=== PATIENT | male | born 1970 | race Caucasian/White ===

== ENCOUNTER 2016-12-26 18:34 | Inpatient (IN) | payer MEDICARE ==
[~2016-12-26] VITALS: Ht 177.8 cm; Wt 94.0 kg
[2016-12-26] VITALS (7 sets, daily range): BP systolic 109–124; BP diastolic 66–83; PULSE 60–95; RESP 18–24; TEMP 97.4–98.2; O2SAT 94–98
--- NOTE | 2016-12-26 18:48 | PD ---
HPI Chief Complaint: Chest Pain Time Seen by Provider: 18:38 Travel History International Travel<30 days: No Contact w/Intl Traveler<30days: No History of Present Illness HPI 46-year-old male patient from [place] with history of previous MIs, pacemaker defibrillator placement, last RI was a year ago, hypertension, presents to the ER because of substernal chest pains which she states feels like his previous heart attacks starting about half an hour ago. He was given aspirin and nitroglycerin, and his pain is now a 1 out of 10. He denies any nausea, radiation of pain, shortness of breath, or any other symptoms. Modifying Factors: None Associated Signs & Symptoms: Chest pain Risk Factors: Previous extensive cardiac history, RI PFSH Past Medical History Hx Anticoagulant Therapy: Yes (ASPIRIN) Cardiovascular Problems: Yes (RI X 2) Social History Tobacco Use: No Allergies-Medications (Allergen,Severity, Reaction): Coded Allergies: ergotamine (Verified Allergy, Severe, 12/26/16) ketorolac (Verified Allergy, Intermediate, 12/26/16) PANIC ATTACKS Reported Meds & Prescriptions Reported Meds & Active Scripts Active Reported Wellbutrin Xl 24 HR (Bupropion HCl) 300 Mg Tab 300 Mg PO DAILY Xanax (Alprazolam) 1 Mg Tab 1 Mg PO Q6H PRN Aspirin 325 Mg Tab 325 Mg PO DAILY Carisoprodol 350 Mg Tablet PO Q8HR Carisoprodol 350 Mg Tablet Oxycodone (Oxycodone HCl) 10 Mg Tab 10 Mg PO Q8H PRN Pravastatin 20 Mg Tab 20 Mg PO DAILY Carvedilol 25 Mg Tab 25 Mg PO BID Review of Systems Except as stated in HPI: all other systems reviewed are Neg Physical Exam Narrative GENERAL: Well-developed middle age white male patient currently in mild distress. Awake and oriented 3. SKIN: Focused skin assessment warm/dry. HEAD: Atraumatic. Normocephalic. EYES: Pupils equal and round. No scleral icterus. No injection or drainage. ENT: No nasal bleeding or discharge. Mucous membranes pink and moist. NECK: Trachea midline. No JVD. CARDIOVASCULAR: Regular rate and rhythm. No murmur appreciated. RESPIRATORY: No accessory muscle use. Clear to auscultation. Breath sounds equal bilaterally. GASTROINTESTINAL: Abdomen soft, non-tender, nondistended. Hepatic and splenic margins not palpable. MUSCULOSKELETAL: No obvious deformities. No clubbing. No cyanosis. No edema. NEUROLOGICAL: Awake and alert. No obvious cranial nerve deficits. Motor grossly within normal limits. Normal speech. PSYCHIATRIC: Appropriate mood and affect; insight and judgment normal. Data Data Last Documented VS Vital Signs Date Time Temp Pulse Resp B/P (MAP) Pulse Ox O2 Delivery O2 Flow Rate FiO2 12/26/16 18:45 115/82 (93) 115/81 (92) 12/26/16 18:43 98 Room Air 12/26/16 18:36 98.2 95 24 Orders Orders Electrocardiogram (12/26/16 18:39) Ckmb (Isoenzyme) Profile (12/26/16 18:39) Complete Blood Count With Diff (12/26/16 18:39) Comprehensive Metabolic Panel (12/26/16 18:39) Magnesium (Mg) (12/26/16 18:39) Prothrombin Time / Inr (Pt) (12/26/16 18:39) Act Partial Throm Time (Ptt) (12/26/16 18:39) Troponin I (12/26/16 18:39) Chest, Single Ap (12/26/16 18:39) Ecg Monitoring (12/26/16 18:39) Bilateral Bp Monitoring (12/26/16 18:39) Iv Access Insert/Monitor (12/26/16 18:39) Oximetry (12/26/16 18:39) Oxygen Administration (12/26/16 18:39) Heparin Inj (Heparin Inj) (12/26/16 19:00) Heparin Inj (Heparin Inj) (12/27/16 01:00) Heparin Inj (Heparin Inj) (12/27/16 01:00) Heparin-D5w 25,000 U/250 Ml (Heparin-D5w (12/26/16 19:00) Act Partial Throm Time (Ptt) (12/26/16 19:00) Cbc No Diff, Includes Plts (12/26/16 19:00) Cbc No Diff, Includes Plts (12/29/16 06:00) Act Partial Throm Time (Ptt) (12/27/16 02:00) Occult Blood (Hemoccult) Stool (12/26/16 19:00) CKMB (12/26/16 18:40) CKMB% (12/26/16 18:40) Labs Laboratory Tests Test 12/26/16 18:40 White Blood Count 6.7 TH/MM3 Red Blood Count 4.46 MIL/MM3 Hemoglobin 13.7 GM/DL Hematocrit 39.8 % Mean Corpuscular Volume 89.2 FL Mean Corpuscular Hemoglobin 30.6 PG Mean Corpuscular Hemoglobin Concent 34.3 % Red Cell Distribution Width 12.6 % Platelet Count 137 TH/MM3 Mean Platelet Volume 10.7 FL Neutrophils (%) (Auto) 47.8 % Lymphocytes (%) (Auto) 42.9 % Monocytes (%) (Auto) 6.4 % Eosinophils (%) (Auto) 2.1 % Basophils (%) (Auto) 0.8 % Neutrophils # (Auto) 3.2 TH/MM3 Lymphocytes # (Auto) 2.9 TH/MM3 Monocytes # (Auto) 0.4 TH/MM3 Eosinophils # (Auto) 0.1 TH/MM3 Basophils # (Auto) 0.1 TH/MM3 CBC Comment AUTO DIFF Prothrombin Time 11.5 SEC Prothromb Time International Ratio 1.0 RATIO Activated Partial Thromboplast Time 25.1 SEC Blood Urea Nitrogen 17 MG/DL Creatinine 1.27 MG/DL Random Glucose 97 MG/DL Total Protein 7.2 GM/DL Albumin 4.0 GM/DL Calcium Level 8.6 MG/DL Magnesium Level 1.9 MG/DL Alkaline Phosphatase 100 U/L Aspartate Amino Transf (AST/SGOT) 24 U/L Alanine Aminotransferase (ALT/SGPT) 34 U/L Total Bilirubin 0.6 MG/DL Sodium Level 138 MEQ/L Potassium Level 3.9 MEQ/L Chloride Level 105 MEQ/L Carbon Dioxide Level 26.9 MEQ/L Anion Gap 6 MEQ/L Estimat Glomerular Filtration Rate 61 ML/MIN Total Creatine Kinase 114 U/L Troponin I LESS THAN 0.02 NG/ML MDM Medical Decision Making Medical Screen Exam Complete: Yes Emergency Medical Condition: Yes Medical Record Reviewed: Yes Interpretation(s) EKG shows normal sinus rhythm with occasional PVCs, ventricular rate currently 78 bpm. He has subcentimeter ST elevations in inferior leads with no obvious reciprocal ST depressions. There are no EKG on file to compare. Last 24 hours Impressions Chest X-Ray 12/26/16 [id number] Signed Impressions: Service Date/Time: Monday, December 26, 2016 19:36 - CONCLUSION: 1. No acute findings. Pacer leads in right atrium and right ventricle. No effusion. Cameron Torres MD Laboratory Tests Test 12/26/16 18:40 Red Blood Count 4.46 MIL/MM3 (4.50-5.90) Platelet Count 137 TH/MM3 (150-450) Estimat Glomerular Filtration Rate 61 ML/MIN (>89) Troponin I LESS THAN 0.02 NG/ML Differential Diagnosis ACS versus STEMI versus non-STEMI versus unstable angina versus anxiety attack versus pneumonia versus dysrhythmias Narrative Course Chest pain is currently a 1 out of 10 according to the patient, much improved after aspirin and nitroglycerin. Case was discussed with Dr. Torres who agrees that this is not an ST elevation RI, EKG was faxed to him. He wanted me to start the patient on heparin and admitted to medicine. Procedures EKG Prior to Arrival: Yes Physician Communication Physician Communication Case is signed out to Dr. Harvey at 7 PM pending full lab workup. Planning for admission. Diagnosis Primary Impression: Chest pain Additional Impression: Unstable angina Admitting Information Admitting Physician Requests: Admit Monroe Rousseau MD Dec 26, 2016 18:48
[2016-12-26] MEDS ORDERED: HEPARIN-D5W 25,000 U/250 ML 250 ML IV PRN (19:00)
[2016-12-26] MEDS ORDERED: HEPARIN SODIUM - IV 10,000 UNITS/10 ML VIAL IV PUSH ONE (19:00)
[2016-12-26] MEDS ORDERED: ASPI325T PO (19:05)
[2016-12-26] MEDS ORDERED: CARI350T25 PO (19:05)
[2016-12-26] MEDS ORDERED: PRAV20TA2 PO (19:05)
[2016-12-26] MEDS ORDERED: XANA1TAB2 PO (19:05)
[2016-12-26] MEDS ORDERED: WELLTAB39 PO (19:05)
[2016-12-26] MEDS ORDERED: OXYC-395 PO (19:05)
[2016-12-26] MEDS ORDERED: CARI350T25 (19:05)
[2016-12-26] MEDS ORDERED: CARV25TA PO (19:05)
[2016-12-26 19:07] LABS: AUTOMATED NEUTROPHIL # 3.2 TH/MM3 (1.8-7.7); BASOPHIL # 0.1 TH/MM3 (0-0.2); BASOPHIL % 0.8 % (0.0-2.0); EOSINOPHIL # 0.1 TH/MM3 (0-0.4); EOSINOPHIL % 2.1 % (0.0-4.0); HEMATOCRIT 39.8 % (39.0-51.0); LYMPH % 42.9 % (9.0-44.0); LYMPHOCYTE # 2.9 TH/MM3 (1.0-4.8); MEAN CELL VOLUME 89.2 FL (80.0-100.0); MEAN CORPUSCULAR HEMOGLOBIN 30.6 PG (27.0-34.0); MEAN CORPUSCULAR HGB CONC 34.3 % (32.0-36.0); MONO % 6.4 % (0.0-8.0); NEUT % 47.8 % (16.0-70.0); PLATELET COUNT 137 TH/MM3 (150-450); RED BLOOD COUNT 4.46 MIL/MM3 (4.50-5.90); RED CELL DISTRIBUTION WIDTH 12.6 % (11.6-17.2); WHITE BLOOD COUNT 6.7 TH/MM3 (4.0-11.0)
[2016-12-26 19:08] LABS: APTT (PATIENT) 25.1 SEC (24.3-30.1); PROTHROMBIN TIME - PATIENT 11.5 SEC (9.8-11.6)
--- NOTE | 2016-12-26 19:09 | RADRPT ---
EXAM DATE/TIME: 12/26/2016 19:36 [facility] COMPARISON: No previous studies available for comparison. INDICATIONS : Chest Pain MEDICAL HISTORY : Cardiovascular disease. SURGICAL HISTORY : Pacemaker. ENCOUNTER: Initial ACUITY: 1 day PAIN SCORE: 7/10 LOCATION: Bilateral chest FINDINGS: A single view of the chest demonstrates the lungs to be symmetrically aerated without evidence of mas s, infiltrate or effusion. The cardiomediastinal contours are unremarkable. Mild cardiomegaly. Pacer leads in right atrium and right ventricle. Osseous structures are intact. CONCLUSION: 1. No acute findings. Pacer leads in right atrium and right ventricle. No effusion. Cameron Torres MD on December 26, 2016 at 19:07 Board Certified Radiologist. This report was verified electronically.
[2016-12-26 19:12] LABS: HEMO FLAGS AUTO DIFF
[2016-12-26 19:14] LABS: ANION GAP 6 MEQ/L (5-15); AST (GOT) 24 U/L (15-37); BICARBONATE 26.9 MEQ/L (21.0-32.0); BLOOD UREA NITROGEN 17 MG/DL (7-18); CHLORIDE 105 MEQ/L (98-107); GLOMERULAR FILTRATION RATE 61 ML/MIN (>89); MAGNESIUM 1.9 MG/DL (1.5-2.5); POTASSIUM 3.9 MEQ/L (3.5-5.1); SODIUM (NA) 138 MEQ/L (136-145)
[2016-12-26 19:15] LABS: ALT (GPT) 34 U/L (12-78)
[2016-12-26 19:18] LABS: ALKALINE PHOSPHATASE 100 U/L (45-117); CREATINE KINASE 114 U/L (39-308); TOTAL BILIRUBIN ADULT 0.6 MG/DL (0.2-1.0)
[2016-12-26 19:31] LABS: CKMB 1.6 NG/ML (0.5-3.6)
--- NOTE | 2016-12-26 19:38 | PD ---
Physical Exam Date Seen by Provider: Dec 26, 2016 Time Seen by Provider: 19:36 Narrative Accepted in transfer of care from Dr Rousseau GENERAL: Well-developed well-nourished male in no acute respiratory distress SKIN: Warm and dry. HEAD: Normocephalic. EYES: No scleral icterus. No injection or drainage. NECK: Supple, trachea midline. No JVD or lymphadenopathy. CARDIOVASCULAR: Regular rate and rhythm without murmurs, gallops, or rubs. RESPIRATORY: Breath sounds equal bilaterally. No accessory muscle use. GASTROINTESTINAL: Abdomen soft, non-tender, nondistended. MUSCULOSKELETAL: No cyanosis, or edema. Radial and dorsalis pedis pulses 2++= to palpation bilaterally Data Data Last Documented VS Vital Signs Date Time Temp Pulse Resp B/P (MAP) Pulse Ox O2 Delivery O2 Flow Rate FiO2 12/26/16 19:29 79 21 124/66 (85) 97 Room Air 12/26/16 18:36 98.2 Orders Orders Electrocardiogram (12/26/16 18:39) Ckmb (Isoenzyme) Profile (12/26/16 18:39) Complete Blood Count With Diff (12/26/16 18:39) Comprehensive Metabolic Panel (12/26/16 18:39) Magnesium (Mg) (12/26/16 18:39) Prothrombin Time / Inr (Pt) (12/26/16 18:39) Act Partial Throm Time (Ptt) (12/26/16 18:39) Troponin I (12/26/16 18:39) Chest, Single Ap (12/26/16 18:39) Ecg Monitoring (12/26/16 18:39) Bilateral Bp Monitoring (12/26/16 18:39) Iv Access Insert/Monitor (12/26/16 18:39) Oximetry (12/26/16 18:39) Oxygen Administration (12/26/16 18:39) Heparin Inj (Heparin Inj) (12/26/16 19:00) Heparin Inj (Heparin Inj) (12/27/16 01:00) Heparin Inj (Heparin Inj) (12/27/16 01:00) Heparin-D5w 25,000 U/250 Ml (Heparin-D5w (12/26/16 19:00) Cbc No Diff, Includes Plts (12/29/16 06:00) Act Partial Throm Time (Ptt) (12/27/16 02:00) Occult Blood (Hemoccult) Stool (12/26/16 19:00) CKMB (12/26/16 18:40) CKMB% (12/26/16 18:40) Sodium Chlorid 0.9% 500 Ml Inj (Ns 500 M (12/26/16 19:45) Sodium Chlor 0.9% 1000 Ml Inj (Ns 1000 M (12/26/16 19:45) Nitroglycerin 2% Oint (Nitroglycerin 2% (12/26/16 20:00) Admit Order (Ed Use Only) (12/26/16 ) [employer] / Telemetry [id number] (12/26/16 20:17) Diet Heart Healthy (12/27/16 Breakfast) Activity Bed Rest (12/26/16 20:17) Notify Dr: Other (12/26/16 20:17) Consult Cardiology (12/26/16 ) Labs Laboratory Tests Test 12/26/16 18:40 White Blood Count 6.7 TH/MM3 Red Blood Count 4.46 MIL/MM3 Hemoglobin 13.7 GM/DL Hematocrit 39.8 % Mean Corpuscular Volume 89.2 FL Mean Corpuscular Hemoglobin 30.6 PG Mean Corpuscular Hemoglobin Concent 34.3 % Red Cell Distribution Width 12.6 % Platelet Count 137 TH/MM3 Mean Platelet Volume 10.7 FL Neutrophils (%) (Auto) 47.8 % Lymphocytes (%) (Auto) 42.9 % Monocytes (%) (Auto) 6.4 % Eosinophils (%) (Auto) 2.1 % Basophils (%) (Auto) 0.8 % Neutrophils # (Auto) 3.2 TH/MM3 Lymphocytes # (Auto) 2.9 TH/MM3 Monocytes # (Auto) 0.4 TH/MM3 Eosinophils # (Auto) 0.1 TH/MM3 Basophils # (Auto) 0.1 TH/MM3 CBC Comment AUTO DIFF Differential Comment AUTO DIFF CONFIRMED Prothrombin Time 11.5 SEC Prothromb Time International Ratio 1.0 RATIO Activated Partial Thromboplast Time 25.1 SEC Blood Urea Nitrogen 17 MG/DL Creatinine 1.27 MG/DL Random Glucose 97 MG/DL Total Protein 7.2 GM/DL Albumin 4.0 GM/DL Calcium Level 8.6 MG/DL Magnesium Level 1.9 MG/DL Alkaline Phosphatase 100 U/L Aspartate Amino Transf (AST/SGOT) 24 U/L Alanine Aminotransferase (ALT/SGPT) 34 U/L Total Bilirubin 0.6 MG/DL Sodium Level 138 MEQ/L Potassium Level 3.9 MEQ/L Chloride Level 105 MEQ/L Carbon Dioxide Level 26.9 MEQ/L Anion Gap 6 MEQ/L Estimat Glomerular Filtration Rate 61 ML/MIN Total Creatine Kinase 114 U/L Creatine Kinase MB 1.6 NG/ML Troponin I LESS THAN 0.02 NG/ML [facility] Medical Record Reviewed: Yes Supervised Visit with JEREL: No Interpretation(s) EKG normal sinus rhythm with PVCs inferior infarction age-indeterminate with QS in lead [address] elevation no reciprocal depression; (this EKG has been reviewed by on-call refractory manager Dr. Torres at 7:03 and it is not a STEMI per Dr Richardson) Last Impressions Chest X-Ray 12/26/16 [id number] Signed Impressions: Service Date/Time: Wednesday, December 26, 2016 19:36 - CONCLUSION: 1. No acute findings. Pacer leads in right atrium and right ventricle. No effusion. Cameron Torres MD CBC & BMP Diagram 12/26/16 18:40 Total Protein 7.2, Albumin 4.0, Calcium Level 8.6, Magnesium Level 1.9, Alkaline Phosphatase 100, Aspartate Amino Transf (AST/SGOT) 24, Alanine Aminotransferase (ALT/SGPT) 34, Total Bilirubin 0.6 Vital Signs Date Time Temp Pulse Resp B/P (MAP) Pulse Ox O2 Delivery O2 Flow Rate FiO2 12/26/16 19:29 79 21 124/66 (85) 97 Room Air 12/26/16 18:45 115/82 (93) 115/81 (92) 12/26/16 18:43 98 Room Air 12/26/16 18:43 98 Room Air 12/26/16 18:36 98.2 95 24 115/82 (93) Differential Diagnosis Accepted in transfer of care from Dr Rousseau; please refer to her dictation Narrative Course Accepted in transfer of care from Dr Rousseau; follow up trop and with Dr Torres --already aware of this patient; started on heparin s/p aspirin and nitroglycerin sublingual w/ reported pain/discomfort 1-2/10 Patient resting comfortably aware that his first set of cardiac enzymes are found to be in normal range patient still notes some mild soreness 1/10 in intensity Patient is receiving heparin infusion has address and paste to his chest wall has artery received aspirin will require admission to [facility] with consult to cardiology serial cardiac enzymes and EKGs. Physician Communication Physician Communication Discussed with [facility] Diagnosis Primary Impression: Chest pain Additional Impression: Unstable angina Admitting Information Admitting Physician Requests: Admit Marii Harvey MD Dec 26, 2016 19:38
[2016-12-26] MEDS ORDERED: SODIUM CHLORID 0.9% 500 ML INJ 500 ML IV ONE (19:45)
[2016-12-26 19:52] LABS: SCAN/DIFF AUTO DIFF CONFIRMED
[2016-12-26] MEDS ORDERED: NITROGLYCERIN 2% OINT 1 GM PACKET TOPICAL ONE (20:00)
[2016-12-26] MEDS: SODIUM CHLOR 0.9% 1000 ML INJ 1,000 ML IV SCH ×2 (20:28→20:35)
--- NOTE | 2016-12-26 20:37 | HHI.HP ---
HPI Service [facility] Primary Care Physician No Primary Care Physician Admission Diagnosis acs; h/o mi Diagnoses: (1) Unstable angina Diagnosis: Principal (2) Dehydration Diagnosis: Principal (3) Thrombocytopenia Diagnosis: Principal (4) Anxiety Diagnosis: Principal (5) Depression Diagnosis: Principal Travel History International Travel<30 Days: No Contact w/Intl Traveler <30 Da: No History of Present Illness This is a 46-year-old male with a PMH of CAD s/p [place], Pacemaker and Migraine who was brought to the ER secondary to c/o chest pain. States pain similar to his previous MIs. Visiting from [place], follows w/ Chemical Plant Technical Director back home, states had previous Cardiac Cath on multiple occasions, however unable to place stent due to "tight blood vessels". S/p ASA and NTG prior to arrival w/ improvement, pain currently 03/17. Denies fever, chills, SOB or sick contacts. On arrival, EKG w/ ST elevation inferior leads, Dr. Torres consulted by ER physician, no STEMI. Per pt, has abnormal EKG at baseline. Attempting to contact [employer] Plant Technical Director to obtain prior EKGs. Currently on Heparin gtt, Dr. Torres will eval in am. Review of Systems Except as stated in HPI: all other systems reviewed are Neg ROS: 14 point review of systems otherwise negative. Past Family Social History Past Medical History PMH: CAD s/p [place], Pacemaker and Migraine Past Surgical History PAST SURGICAL HISTORY: Pacemaker ([employer]) Allergies: Coded Allergies: ergotamine (Verified Allergy, Severe, 12/26/16) ketorolac (Verified Allergy, Intermediate, 12/26/16) PANIC ATTACKS Family History PAST FAMILY HISTORY: Reviewed, strong family h/o CAD at young age in Mother and Father. Social History PAST SOCIAL HISTORY: Negative for alcohol, tobacco or drugs. Physical Exam Vital Signs Vital Signs Date Time Temp Pulse Resp B/P (MAP) Pulse Ox O2 Delivery O2 Flow Rate FiO2 12/26/16 20:29 66 19 109/78 (88) 97 Room Air 12/26/16 19:29 79 21 124/66 (85) 97 Room Air 12/26/16 18:45 115/82 (93) 115/81 (92) 12/26/16 18:43 98 Room Air 12/26/16 18:43 98 Room Air 12/26/16 18:36 98.2 95 24 115/82 (93) Physical Exam PE: GENERAL: Very pleasant middle-aged white male in no acute distress. HEENT: PERRLA, EOMI. No scleral icterus or conjunctival pallor. No lid lag or facial droop. CARDIOVASCULAR: Regular rate and rhythm. No obvious murmurs to auscultation. No chest tenderness to palpation. RESPIRATORY: No obvious rhonchi or wheezing. Clear to auscultation. Breath sounds equal bilaterally. GASTROINTESTINAL: Abdomen soft, non-tender, nondistended. BS normal. MUSCULOSKELETAL: Extremities without clubbing, cyanosis, or edema. No obvious deformities. NEUROLOGICAL: Awake, alert and oriented x4. No focal neurologic deficits. Moving both upper and lower extremities spontaneously. Laboratory Laboratory Tests Test 12/26/16 18:40 White Blood Count 6.7 Red Blood Count 4.46 Hemoglobin 13.7 Hematocrit 39.8 Mean Corpuscular Volume 89.2 Mean Corpuscular Hemoglobin 30.6 Mean Corpuscular Hemoglobin Concent 34.3 Red Cell Distribution Width 12.6 Platelet Count 137 Mean Platelet Volume 10.7 Neutrophils (%) (Auto) 47.8 Lymphocytes (%) (Auto) 42.9 Monocytes (%) (Auto) 6.4 Eosinophils (%) (Auto) 2.1 Basophils (%) (Auto) 0.8 Neutrophils # (Auto) 3.2 Lymphocytes # (Auto) 2.9 Monocytes # (Auto) 0.4 Eosinophils # (Auto) 0.1 Basophils # (Auto) 0.1 CBC Comment AUTO DIFF Differential Comment AUTO DIFF CONFIRMED Prothrombin Time 11.5 Prothromb Time International Ratio 1.0 Activated Partial Thromboplast Time 25.1 Blood Urea Nitrogen 17 Creatinine 1.27 Random Glucose 97 Total Protein 7.2 Albumin 4.0 Calcium Level 8.6 Magnesium Level 1.9 Alkaline Phosphatase 100 Aspartate Amino Transf (AST/SGOT) 24 Alanine Aminotransferase (ALT/SGPT) 34 Total Bilirubin 0.6 Sodium Level 138 Potassium Level 3.9 Chloride Level 105 Carbon Dioxide Level 26.9 Anion Gap 6 Estimat Glomerular Filtration Rate 61 Total Creatine Kinase 114 Creatine Kinase MB 1.6 Troponin I LESS THAN 0.02 Result Diagram: 12/26/16183912/26/161839 Caprini VTE Risk Assessment Caprini VTE Risk Assessment: Mod/High Risk (score >= 2) Caprini Risk Assessment Model Point Value = 1 Point Value = 2 Point Value = 3 Point Value = 5 Age 41-60 Minor surgery BMI > 25 kg/m2 Swollen legs Varicose veins or History of unexplained or recurrent spontaneous Oral contraceptives or hormone replacement Sepsis (< 1 month) Serious lung disease, including pneumonia (< 1 month) Abnormal pulmonary function Acute myocardial infarction Congestive heart failure (< 1 month) History of inflammatory bowel disease Medical patient at bed rest Age 61-74 Arthroscopic surgery Major open surgery (> 45 min) Laparoscopic surgery (> 45 min) Malignancy Confined to bed (> 72 hours) Immobilizing plaster cast Central venous access Age >= 75 History of VTE Family history of VTE Factor V Leiden Prothrombin [id number] Lupus anticoagulant Anticardiolipin antibodies Elevated serum homocysteine Heparin-induced thrombocytopenia Other congenital or acquired thrombophilia Stroke (< 1 month) Elective arthroplasty Hip, pelvis, or leg fracture Acute spinal cord injury (< 1 month) Prophylaxis Regimen Total Risk Factor Score Risk Level Prophylaxis Regimen 0-1 Low Early ambulation 2 Moderate Order ONE of the following: *Sequential Compression Device (SCD) *Heparin 5000 units SQ BID 3-4 Higher Order ONE of the following medications: *Heparin 5000 units SQ TID *Enoxaparin/Lovenox 40 mg SQ daily (WT < 150 kg, CrCl > 30 mL/min) *Enoxaparin/Lovenox 30 mg SQ daily (WT < 150 kg, CrCl > 10-29 mL/min) *Enoxaparin/Lovenox 30 mg SQ BID (WT < 150 kg, CrCl > 30 mL/min) AND/OR *Sequential Compression Device (SCD) 5 or more Highest Order ONE of the following medications: *Heparin 5000 units SQ TID (Preferred with Epidurals) *Enoxaparin/Lovenox 40 mg SQ daily (WT < 150 kg, CrCl > 30 mL/min) *Enoxaparin/Lovenox 30 mg SQ daily (WT < 150 kg, CrCl > 10-29 mL/min) *Enoxaparin/Lovenox 30 mg SQ BID (WT < 150 kg, CrCl > 30 mL/min) AND *Sequential Compression Device (SCD) Assessment and Plan Problem List: (1) Unstable angina ICD Code: I20.0 - Unstable angina Status: Acute (2) Dehydration ICD Code: E86.0 - Dehydration (3) Thrombocytopenia ICD Code: D69.6 - Thrombocytopenia, unspecified (4) Anxiety ICD Code: F41.9 - Anxiety disorder, unspecified (5) Depression ICD Code: F32.9 - Major depressive disorder, single episode, unspecified Assessment and Plan A/P: 1. Unstable Angina: r/o ACS, h/o CAD s/p [place] and Pacemaker, now w/ acute onset of substernal chest pain relieved by NTG. EKG w/ ST elevation inferior leads, Dr. Torres consulted by ER physician, no STEMI. Per pt, EKG abnormal at baseline. Attempting to contact Chemical Plant Technical Director in [place]. Currently chest pain free. Continue NTG/Morphine prn. On Heparin gtt. 2. Dehydration: GFR 61, BUN/Creat normal. IVF for hydration, repeat labs in am. 3. Thrombocytopenia: Platelets 137, no active bleeding, no previous labs for comparison. Will monitor. 4. Anxiety: Resume home Xanax. 5. Depression: Stable. Resume home Wellbutrin. 6. DVT Prophylaxis: On Heparin gtt 7. Social work for d/c planning as needed. 8. Case discussed w/ ER physician at length. Physician Certification 2 Midnight Certification Type: Admission for Inpatient Services Order for Inpatient Services The services are ordered in accordance with Medicare regulations or non- Medicare payer requirements, as applicable. In the case of services not specified as inpatient-only, they are appropriately provided as inpatient services in accordance with the 2-midnight benchmark. Estimated LOS (days): 2 days is the estimated time the patient will need to remain in the hospital, assuming treatment plan goals are met and no additional complications. Post-Hospital Plan: Not yet determined Evette Burnett MD Dec 26, 2016 20:37
[2016-12-26] MEDS ORDERED: SODIUM CHLORIDE 0.9% FLUSH 10 ML FLUSH IV FLUSH PRN (20:45)
[2016-12-26] MEDS ORDERED: ACETAMINOPHEN 325 MG TAB PO PRN (20:45)
[2016-12-26] MEDS ORDERED: BISACODYL 10 MG SUPP RECTAL PRN (20:45)
[2016-12-26] MEDS ORDERED: LACTULOSE SYRUP 20 GM/30 ML CUP PO PRN (20:45)
[2016-12-26] MEDS ORDERED: MORPHINE SULFATE 2 MG/ML INJ IV PRN (20:45)
[2016-12-26] MEDS ORDERED: ALPRAZolam 1 MG TAB PO PRN (20:45)
[2016-12-26] MEDS ORDERED: SENNOSIDES 8.6 MG TAB PO PRN (20:45)
[2016-12-26] MEDS ORDERED: MAGNESIUM HYDROXIDE SUSP 30 ML CUP PO PRN (20:45)
[2016-12-26] MEDS ORDERED: ONDANSETRON HCL 4 MG/2 ML VIAL IVP PRN (20:45)
[2016-12-26] MEDS ORDERED: NITROGLYCERIN 2% OINT 1 GM PACKET TOPICAL PRN (20:45)
[2016-12-26] MEDS: DOCUSATE SODIUM 50 MG/SENNA 8.6 MG TAB PO SCH (21:00)
[2016-12-26] MEDS: SODIUM CHLORIDE 0.9% FLUSH 10 ML FLUSH IV FLUSH SCH (21:00)
[2016-12-26] MEDS: CARVEDILOL 12.5 MG TAB PO SCH (21:00)
[2016-12-26] MEDS ORDERED: MECL-62 PO (21:51)
[2016-12-26] MEDS ORDERED: CETI10 PO (21:51)
[2016-12-26] MEDS: CARISOPRODOL 350 MG TAB PO SCH (22:45)
[2016-12-26] MEDS: MECLIZINE HCL 25 MG TAB PO SCH (22:45)
[2016-12-27] MEDS ORDERED: HEPARIN SODIUM - IV 10,000 UNITS/10 ML VIAL IV PUSH PRN ×2 (01:00)
[2016-12-27 02:08] LABS: AUTOMATED NEUTROPHIL # 3.6 TH/MM3 (1.8-7.7); BASOPHIL % 0.6 % (0.0-2.0); EOSINOPHIL # 0.1 TH/MM3 (0-0.4); EOSINOPHIL % 1.1 % (0.0-4.0); HEMATOCRIT 36.9 % (39.0-51.0); HEMO FLAGS DIFF FINAL; LYMPH % 37.7 % (9.0-44.0); LYMPHOCYTE # 2.4 TH/MM3 (1.0-4.8); MEAN CELL VOLUME 88.6 FL (80.0-100.0); MEAN CORPUSCULAR HEMOGLOBIN 30.5 PG (27.0-34.0); MEAN CORPUSCULAR HGB CONC 34.4 % (32.0-36.0); MONO % 5.7 % (0.0-8.0); NEUT % 54.9 % (16.0-70.0); PLATELET COUNT 121 TH/MM3 (150-450); RED BLOOD COUNT 4.17 MIL/MM3 (4.50-5.90); RED CELL DISTRIBUTION WIDTH 12.6 % (11.6-17.2); WHITE BLOOD COUNT 6.5 TH/MM3 (4.0-11.0)
[2016-12-27 03:00] VITALS: BP 102/62; PULSE 60; PULSE 61; RESP 18; TEMP 98.1; O2SAT 95
[2016-12-27] MEDS: SODIUM CHLOR 0.9% 1000 ML INJ 1,000 ML IV SCH ×3 (05:45→16:35)
[2016-12-27] MEDS: CARISOPRODOL 350 MG TAB PO SCH ×2 (06:00→14:13)
[2016-12-27 07:00] VITALS: BP 105/73; PULSE 71; RESP 18; TEMP 97.7; O2SAT 98
[2016-12-27] MEDS: DOCUSATE SODIUM 50 MG/SENNA 8.6 MG TAB PO SCH (09:00)
[2016-12-27] MEDS: SODIUM CHLORIDE 0.9% FLUSH 10 ML FLUSH IV FLUSH SCH (09:00)
[2016-12-27] MEDS ORDERED: CETIRIZINE HCL 10 MG TAB PO SCH (09:00)
[2016-12-27] MEDS ORDERED: PRAVASTATIN SOD 20 MG TAB PO SCH (09:00)
[2016-12-27] MEDS ORDERED: buPROPion HCL 150 MG SUSTAINED RELEASE TAB PO SCH (09:00)
[2016-12-27] MEDS ORDERED: ASPIRIN 325 MG TAB PO SCH (09:00)
[2016-12-27] MEDS: CARVEDILOL 12.5 MG TAB PO SCH (09:00)
[2016-12-27] MEDS: MECLIZINE HCL 25 MG TAB PO SCH (09:00)
[2016-12-27 09:06] LABS: APTT (PATIENT) 40.2 SEC (24.3-30.1)
[2016-12-27 09:12] LABS: ANION GAP 6 MEQ/L (5-15); AST (GOT) 18 U/L (15-37); BICARBONATE 26.2 MEQ/L (21.0-32.0); BLOOD UREA NITROGEN 12 MG/DL (7-18); CHLORIDE 110 MEQ/L (98-107); GLOMERULAR FILTRATION RATE 75 ML/MIN (>89); POTASSIUM 3.8 MEQ/L (3.5-5.1); SODIUM (NA) 142 MEQ/L (136-145)
[2016-12-27 09:13] LABS: ALT (GPT) 28 U/L (12-78)
[2016-12-27 09:16] LABS: ALKALINE PHOSPHATASE 94 U/L (45-117); TOTAL BILIRUBIN ADULT 0.7 MG/DL (0.2-1.0)
[2016-12-27] MEDS ORDERED: INFLUENZA VIRUS VACCINE (QUADRIVALENT) 0.5 ML SYR IM ONE (10:00)
--- NOTE | 2016-12-27 10:08 | HHI.PR ---
Subjective Remarks f/u; instable angina. in no acute distress. no chest pain or sob. d/w the RN and no acute issues over night. Objective Vitals Vital Signs Date Time Temp Pulse Resp B/P (MAP) Pulse Ox O2 Delivery O2 Flow Rate FiO2 12/27/16 07:00 71 12/27/16 07:00 95 Room Air 12/27/16 07:00 97.7 71 18 105/73 (84) 98 12/27/16 03:00 98.1 61 18 102/62 (75) 95 12/27/16 03:00 60 12/27/16 03:00 95 Room Air 12/26/16 23:33 18 12/26/16 23:00 60 12/26/16 23:00 94 Room Air 12/26/16 23:00 97.4 66 18 114/71 (85) 94 12/26/16 22:52 18 12/26/16 21:14 12/26/16 21:00 72 12/26/16 21:00 98.2 66 18 117/83 (94) 96 12/26/16 21:00 96 Room Air 12/26/16 20:29 66 19 109/78 (88) 97 Room Air 12/26/16 19:29 79 21 124/66 (85) 97 Room Air 12/26/16 18:45 115/82 (93) 115/81 (92) 12/26/16 18:43 98 Room Air 12/26/16 18:43 98 Room Air 12/26/16 18:36 98.2 95 24 115/82 (93) I/O 12/26/16 12/26/16 12/26/16 12/27/16 12/27/16 12/27/16 07:00 15:00 23:00 07:00 15:00 23:00 Intake Total 500 ml 1332 ml Output Total 800 ml Balance 500 ml 532 ml Intake Oral 240 ml IV Total 500 ml 1092 ml Output Urine Total 800 ml # Bowel Movements 0 Result Diagram: 12/27/16 0123 12/27/16 0819 Imaging Last Impressions Chest X-Ray 12/26/16 1839 Signed Impressions: Service Date/Time: Monday, December 26, 2016 19:36 - CONCLUSION: 1. No acute findings. Pacer leads in right atrium and right ventricle. No effusion. Cameron Torres MD Objective Remarks GENERAL: This is a well-nourished, well-developed patient, in no apparent distress. CARDIOVASCULAR: Regular rate and regular rhythm without murmurs, gallops, or rubs. RESPIRATORY: Clear to auscultation. Breath sounds equal bilaterally. No wheezes , rales, or rhonchi. GASTROINTESTINAL: Abdomen soft, non-tender, nondistended. Normal, active bowel sounds MUSCULOSKELETAL: Extremities without clubbing, cyanosis, or edema. NEURO: Alert & Oriented x4 to person, place, time, situation. Moves all ext x4 Medications and IVs Current Medications Heparin Sodium (Porcine) (Heparin Inj) 7,000 units ONCE ONCE IV PUSH Last administered on 12/26/16 19:22; Start 12/26/16 at 19:00; Stop 12/26/16 at 19 :02; Status DC Heparin Sodium (Porcine) (Heparin Inj) 5,000 units UNSCH PRN IV PUSH APTT LESS THAN 25; Start 12/27/16 at 01:00 Heparin Sodium (Porcine) (Heparin Inj) 2,500 units UNSCH PRN IV PUSH APTT 25 TO 39; Start 12/27/16 at 01:00 Heparin Sodium/ Dextrose 250 ml @ 10 mls/hr TITRATE PRN IV Coagulation management Last administered on 12/26/16 19:29; Start 12/26/16 at 19:00 Sodium Chloride 500 ml @ 500 mls/hr BOLUS ONCE IV Last administered on 20:28; Start 12/26/16 at 19:45; Stop 12/26/16 at 20:44; Status DC Sodium Chloride 1,000 ml @ 100 mls/hr Q10H IV Last administered on 12/27/16 05:45; Start 12/26/16 at 19:45 Nitroglycerin (Nitroglycerin 2% Oint) 1 inch ONCE ONCE TOPICAL ; Start at 20:00; Stop 12/26/16 at 20:01; Status DC Sodium Chloride 1,000 ml @ 100 mls/hr Q10H IV ; Start 12/26/16 at 20:35 Sodium Chloride (NS Flush) 2 ml UNSCH PRN IV FLUSH FLUSH AFTER USING IV ACCESS ; Start 12/26/16 at 20:45 Sodium Chloride (NS Flush) 2 ml BID IV FLUSH Last administered on 12/27/16 09 :00; Start 12/26/16 at 21:00 Ondansetron HCl (Zofran Inj) 4 mg Q6H PRN IVP NAUSEA OR VOMITING; Start at 20:45 Acetaminophen (Tylenol) 650 mg Q6H PRN PO FEVER/PAIN SCALE 1 TO 2; Start 12/26 at 20:45 Morphine Sulfate (Morphine Inj) 2 mg Q3H PRN IV PAIN 6-10; Start 12/26/16 at 20:45 Oxycodone HCl (Roxicodone) 5 mg Q4H PRN PO PAIN SCALE 3 TO 5 Last administered on 12/27/16 09:44; Start 12/26/16 at 20:45 Senna/Docusate Sodium (Jerri-Colace) 1 tab BID PO Last administered on 09:00; Start 12/26/16 at 21:00 Magnesium Hydroxide (Milk Of Magnesia Liq) 30 ml Q12H PRN PO Mild constipation ; Start 12/26/16 at 20:45 Sennosides (Senokot) 17.2 mg Q12H PRN PO Moderate constipation; Start at 20:45 Bisacodyl (Dulcolax Supp) 10 mg DAILY PRN RECTAL SEVERE CONSITIPATION; Start 12/26/16 at 20:45 Lactulose (Lactulose Liq) 30 ml DAILY PRN PO SEVERE CONSITIPATION; Start 12/26 at 20:45 Nitroglycerin (Nitroglycerin 2% Oint) 0.5 inch Q6H PRN TOPICAL CHEST PAIN; Start 12/26/16 at 20:45 Alprazolam (Xanax) 1 mg Q6H PRN PO ANXIETY Last administered on 12/26/16 23: 17; Start 12/26/16 at 20:45 Aspirin (Aspirin) 325 mg DAILY PO Last administered on 12/27/16 09:00; Start 12/27/16 at 09:00 Bupropion HCl (Wellbutrin Sr) 300 mg DAILY PO ; Start 12/27/16 at 09:00 Carvedilol (Coreg) 25 mg BID PO Last administered on 12/26/16 21:00; Start 12/26/16 at 21:00 Pravastatin Sodium (Pravachol) 20 mg DAILY PO Last administered on 12/27/16 09:00; Start 12/27/16 at 09:00 Meclizine HCl (Antivert) 25 mg BID PO Last administered on 12/27/16 09:00; Start 12/26/16 at 22:45 Carisoprodol (Soma) 350 mg Q8HR PO Last administered on 12/27/16 06:00; Start 12/26/16 at 22:45 Cetirizine HCl (ZyrTEC) 10 mg DAILY PO Last administered on 12/27/16 09:00; Start 12/27/16 at 09:00 Influenza Virus Vaccine (Flu (Quadrivalent) Vaccine Inj) 0.5 ml ONCE ONCE IM ; Start 12/27/16 at 10:00; Stop 12/27/16 at 10:01; Status DC A/P Problem List: (1) Unstable angina ICD Code: I20.0 - Unstable angina Status: Acute (2) Dehydration ICD Code: E86.0 - Dehydration (3) Thrombocytopenia ICD Code: D69.6 - Thrombocytopenia, unspecified (4) Anxiety ICD Code: F41.9 - Anxiety disorder, unspecified (5) Depression ICD Code: F32.9 - Major depressive disorder, single episode, unspecified Assessment and Plan A/P 1. Unstable Angina: h/o CAD s/p [place] and Pacemaker, now w/ acute onset of substernal chest pain relieved by NTG. EKG w/ ST elevation inferior leads, Dr. Torres consulted by ER physician, no STEMI. Per pt, EKG abnormal at baseline. Currently chest pain free. Continue NTG/Morphine prn. On Heparin gtt. continue aspirin, coreg and statin. 2. Dehydration: IVF for hydration. 3. Thrombocytopenia: Platelets 137, no active bleeding, no previous labs for comparison. Will monitor. 4. Anxiety: Resumed home Xanax. 5. Depression: Stable. Resumed home Wellbutrin. 6. DVT Prophylaxis: On Heparin gtt Discharge Planning awaiting cardiology evaluation. Silvana Tamayo MD Dec 27, 2016 10:08
[2016-12-27] MEDS ORDERED: CARVEDILOL 6.25 MG TAB PO SCH (10:15)
[2016-12-27 11:00] VITALS: BP 118/80; PULSE 72; RESP 18; TEMP 98.4; O2SAT 97
--- NOTE | 2016-12-27 11:07 | MB ---
cc: CHARLES DALY MD DATE OF CONSULTATION: 12/27/2016 REASON FOR CONSULTATION: Chest pain. HISTORY OF PRESENT ILLNESS The patient is a very pleasant 46-year-old gentleman with a history of a prior inferior GA that apparently was not amendable to intervention. 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 The patient was visiting from [place] at the [facility] yesterday when he began having chest pain while he was walking around. He took two sublingual nitroglycerin with no effect. EMS was called, they gave him a third. He was chest pain free by the time he got to the emergency department where he was admitted and he has ruled out for GA. He is currently asymptomatic denying any residual chest pain, no shortness breath, lightheadedness, dizziness. Past medical history 1. Myocardial infarction with coronary disease not amendable to revascularization at the time. 2. [employer] pacemaker (the patient says defibrillator as well). 3. Anxiety. CURRENT MEDICATIONS 1. Coreg 6.25 mg q. 12. 2. Aspirin 325 mg daily. 3. Wellbutrin. 4. Pravachol. 5. Zyrtec ALLERGIES Ketorolac Ergotamine. PHYSICAL EXAMINATION Afebrile, pulse 71, respiratory 18, BP 105/73, sating 95% on room air. General: Pleasant well-appearing gentleman in no distress. Neck: No JVD. Lungs: Clear auscultation bilaterally. Cardiovascular: Regular rhythm. No murmurs appreciated. Abdomen: Benign. Extremities: No edema. LABORATORY DATA Cardiac enzymes negative x3, sodium 142, potassium 3.8, chloride 110, bicarb 26.2, BUN 12, creatinine 1.06, glucose 98, INR is 1.0, white count 6.5, hematocrit 36.9, platelets 121. EKG showed sinus rhythm with an old inferior infarct and nonspecific inferior ST changes likely not acute, as well as occasional PVCs. IMPRESSION Chest pain. The patient's chest pain seems fairly typical, however, he has had multiple cardiac catheterization showing coronary disease that was not amendable to intervention. Before sending him to another catheterization, I think a nuclear stress test would be reasonable to ensure there something beyond scar that could be fixed. Additionally, I will add isosorbide to his regimen for anti-anginal to help reduce his chest pain as well. He is already on a beta elli. Further recommendations based on his clinical course and stress test. Thank you again for the opportunity to participate in this patient's care. MD MYRA Felix/JUDE /10:44 AM /10:54 AM
[2016-12-27] MEDS ORDERED: REGADENOSON INJ 0.4 MG/5 ML SYR ONE (12:59)
--- NOTE | 2016-12-27 13:29 | EKG ---
Date Performed: 12/26/2016 Time Performed: 18:39:02 PTAGE: 46 years EKG: Sinus rhythm WITH FREQUENT VENTRICULAR PREMATURE COMPLEXES INFERIOR MYOCARDIAL INFARCTION ANTEROLATERAL MYOCARDIA L INFARCTION ACUTE UT NO PREVIOUS TRACING DOCTOR: Alan Ibanez Interpretating Date/Time 12/27/2016 13:28:45
--- NOTE | 2016-12-27 14:28 | RADRPT ---
EXAM DATE/TIME: 12/27/2016 11:56 [facility] COMPARISON: No previous studies available for comparison. INDICATIONS : Chest pain. Angina. Myocardial infarction. DOSE: mCi Tc99m Myoview at stress. ? mCi Tc99m Myoview at rest. 0.4 mg Lexiscan STRESS SYMPTOMS: Dyspnea and weird feeling. EJECTION FRACTION: 44% MEDICAL HISTORY : Hypertension. Myocardial infarction. Cardiovascular disease SURGICAL HISTORY : Tonsillectomy. Pacemaker. ENCOUNTER: Initial ACUITY: 1 day PAIN SCALE: 0/10 LOCATION: Bilateral chest TECHNIQUE: The patient underwent pharmacologic stress with infusion of prescribed dose. Continuous ECG tracing was monitored during stress. Gated SPECT imaging was performed after stress and conventional SPECT i maging was performed at rest. The examination was performed on a SPECT/CT scanner, both attenuation and non-corrected datasets were reviewed. FINDINGS: DISTRIBUTION: The maximum perfused segment at stress is in the lateral wall. PERFUSION STUDY: There is a large fixed defect involving the inferior wall. No reversible defects observed. GATED STUDY: There is a relative global hypokinesia. This is most pronounced involving the inferior wall with dysk inesia noted particularly at the base of the inferior wall. CONCLUSION: No reversible defects observed to suggest acute ischemia. RISK CATEGORY: Intermediate Saeid Valdez Jr., MD on December 27, 2016 at 14:20 Board Certified Radiologist. This report was verified electronically.
[2016-12-27 15:18] VITALS: BP 120/83; PULSE 60; PULSE 67; RESP 18; TEMP 97.8; O2SAT 97
[2016-12-27 15:34] VITALS: RESP 18
[2016-12-27] MEDS ORDERED: ISOS30TA3 PO (16:00)
[2016-12-27] MEDS ORDERED: CARV6.25 PO (16:00)
--- NOTE | 2016-12-27 16:06 | HHI.PR ---
Addendum To [facility] Progress Not Reason for addendum: Additonal documentation (d/w - patient was cleared for discharge with outpatient f/u- Imdur was added. d/w the RN.) Silvana Tamayo MD Dec 27, 2016 16:06
[2016-12-27 16:07] VITALS: PULSE 68
[2016-12-28] MEDS ORDERED: ISOSORBIDE MONONITRATE 30 MG TAB PO SCH (07:00)
== END 2016-12-27 16:55 | disposition home or self-care (01) | DRG 303 ==
LOC: NEPC 18:34 → NEDA 20:20 → HCVI 21:05 → HCIN 12-27 13:57
PROVIDERS: ADMIT Internal Medicine; ATTEND Internal Medicine
DX: I25.110 Atherosclerotic heart disease of native coronary artery with unstable angina pectoris (principal); D69.6 Thrombocytopenia, unspecified; E86.0 Dehydration; I25.2 Old myocardial infarction; Z95.810 Presence of automatic (implantable) cardiac defibrillator; Z79.01 Long term (current) use of anticoagulants; Z79.82 Long term (current) use of aspirin; F32.9 Major depressive disorder, single episode, unspecified; F41.9 Anxiety disorder, unspecified; Z82.49 Family history of ischemic heart disease and other diseases of the circulatory system; Z23 Encounter for immunization
CPT/HCPCS: 71010; 78452; 80053; 82550; 82552; 83735; 84484; 85025; 85610; 85730; 90686; 93005; 93017; 96365; 96375; A9502; J1644; J2785; J7030; J7040; Q2038